=== PATIENT | female | born 1995 | race African-American/Black ===

== ENCOUNTER 2018-10-04 06:58 | Emergency (ER) | payer OTHER ==
[~2018-10-04] VITALS: Ht 167.6 cm; Wt 117.9 kg
[2018-10-04 07:01] VITALS: BP 156/74
[2018-10-04] MEDS ORDERED: NAPROSYN500 MG PO (07:54)
== END 2018-10-04 08:10 | disposition home or self-care (01) ==
LOC: ER 06:58
DX: S93.491A Sprain of other ligament of right ankle, initial encounter (principal); W01.0XXA Fall on same level from slipping, tripping and stumbling without subsequent striking against object, initial encounter; Y92.89 Other specified places as the place of occurrence of the external cause; Y93.89 Activity, other specified; Y99.8 Other external cause status

== ENCOUNTER 2019-05-08 10:41 | Emergency (ER) | payer OTHER ==
[~2019-05-08] VITALS: Ht 167.6 cm; Wt 138.8 kg
[~2019-05-08 10:41] MED LIST: NAPROSYN500 MG PO
[2019-05-08 10:44] VITALS: BP 138/74
[2019-05-08] MEDS ORDERED: CEPACOL SORE T1 EAC8 PO (11:22)
[2019-05-08] MEDS ORDERED: PREDNISONE 20 M20 MG PO (11:22)
[2019-05-08] MEDS ORDERED: MOBIC7.5 MG PO (11:22)
== END 2019-05-08 11:25 | disposition home or self-care (01) ==
LOC: ER 10:41
DX: J02.8 Acute pharyngitis due to other specified organisms (principal)